=== PATIENT | female | born 2000 | race Two or more races ===

== ENCOUNTER 2022-06-17 03:36 | Inpatient (IN) | payer OTHER ==
[~2022-06-17] VITALS: Ht 160 cm; Wt 76.7 kg
[2022-06-17] VITALS (63 sets, daily range): BP systolic 84–164; BP diastolic 45–83
[2022-06-17] MEDS ORDERED: LACTATED RINGER'S 1000 ML IV STA (04:26)
[2022-06-17] MEDS ORDERED: METHYLERGONOVINE MALEATE 0.2 MG/ML VIAL (J2210) IM PRN (04:30)
[2022-06-17] MEDS ORDERED: LIDOCAINE 1% MDV 20ML VIAL INFIL PRN (04:30)
[2022-06-17] MEDS ORDERED: OXYTOCIN DRIP 30 UNITS in IV 1 EA IV PRN ×4 (04:30)
[2022-06-17] MEDS ORDERED: TRANEXAMIC ACID INJection 1,000 MG in NS 100 ML IV PRN (04:30)
[2022-06-17 04:45] LABS: HEMATOCRIT 38.3 % (36.0-47.0); HEMOGLOBIN 12.7 g/dl (12.0-15.5); MEAN CORPUSCULAR HEMOGLOBIN 30.3 pg (27.0-33.0); MEAN CORPUSCULAR HGB CONC 33.2 g/dl (32.0-36.5); MEAN CORPUSCULAR VOLUME 91.4 fl (80.0-96.0); PLATELET COUNT, AUTOMATED 297 10^3/uL (150-450); RED BLOOD COUNT 4.19 10^6/uL (4.00-5.40); WHITE BLOOD COUNT 15.6 10^3/uL (4.0-10.0)
[2022-06-17] MEDS: LR 1,000 ML IV SCH ×2 (05:03→20:30)
[2022-06-17] MEDS ORDERED: diphenhydrAMINE 50MG/ML VIAL (J1200) IV PRN (05:10)
[2022-06-17] MEDS ORDERED: NALOXONE INJ 0.4MG/1ML VIAL (J2310 PER 1MG) IV PRN (05:10)
[2022-06-17] MEDS ORDERED: LR 500 ML IV PRN (05:10)
[2022-06-17] MEDS ORDERED: ePHEDrine SULFATE 25 MG/5 ML(5MG/ML) SYRINGE IVP PRN (05:10)
[2022-06-17] MEDS ORDERED: ONDANSETRON 4MG 2ML VIAL IV PRN (05:10)
[2022-06-17] MEDS ORDERED: EPIDURAL/PCA KEYS XX PRN (05:10)
[2022-06-17] MEDS: FENTANYL/ROPIVACAINE/NACL BAG 100 ML EPIDURAL SCH ×2 (05:19→17:26)
[2022-06-17] MEDS ORDERED: OXYTOCIN DRIP 30 UNITS in IV 1 EA IV SCH (07:30)
[2022-06-17] MEDS: MIRALAX *UNIT DOSE* 17GM PACKET PO SCH (09:00)
[2022-06-17] MEDS ORDERED: ACETAMINOPHEN TAB 650MG DOSE (2X325MG) PO PRN (10:25)
[2022-06-17] MEDS ORDERED: METHYLERGONOVINE MALEATE 0.2 MG TAB PO PRN (10:25)
[2022-06-17] MEDS ORDERED: ACETAMINOPHEN 500 MG TAB PO PRN (10:25)
[2022-06-17] MEDS ORDERED: IBUPROFEN 800 MG TAB PO PRN (10:25)
[2022-06-17] MEDS ORDERED: DOCUSATE SODIUM 100MG CAPSULE PO PRN (10:25)
[2022-06-17] MEDS ORDERED: IBUPROFEN 600MG TAB PO PRN (10:25)
[2022-06-17 13:17] LABS: BASO % 0.1 % (0.0-1.0); HEMATOCRIT 30.6 % (36.0-47.0); LYMPH # 2.1 10^3/uL (1.5-5.0); LYMPH % 9.1 % (24.0-44.0); MEAN CORPUSCULAR HEMOGLOBIN 29.9 pg (27.0-33.0); MEAN CORPUSCULAR VOLUME 93.3 fl (80.0-96.0); MONO # 1.3 10^3/uL (0.0-0.8); MONO % 5.6 % (2.0-8.0); NEUTROPHILS # 19.4 10^3/uL (1.5-8.5); NEUTROPHILS % 84.3 % (36.0-66.0); PLATELET COUNT, AUTOMATED 244 10^3/uL (150-450); RED BLOOD COUNT 3.28 10^6/uL (4.00-5.40)
[2022-06-17 13:34] LABS: HEMOGLOBIN 9.8 g/dl (12.0-15.5)
[2022-06-17] MEDS ORDERED: ACETAMINOPH W/CODEINE #3 TAB UD PO PRN (13:50)
[2022-06-17 15:54] LABS: HEMATOCRIT 27.5 % (36.0-47.0); HEMOGLOBIN 9.3 g/dl (12.0-15.5); MEAN CORPUSCULAR HEMOGLOBIN 31.1 pg (27.0-33.0); MEAN CORPUSCULAR HGB CONC 33.8 g/dl (32.0-36.5); PLATELET COUNT, AUTOMATED 259 10^3/uL (150-450); RED BLOOD COUNT 2.99 10^6/uL (4.00-5.40); WHITE BLOOD COUNT 22.7 10^3/uL (4.0-10.0)
[2022-06-17] MEDS ORDERED: LACTATED RINGER'S 1000 ML IV ONE (16:00)
[2022-06-17] MEDS ORDERED: ACETAMINOPH W/CODEINE #3 TAB UD PO ONE (16:05)
[2022-06-17] MEDS ORDERED: oxyCODONE 5MG TAB PO PRN (16:25)
[2022-06-17] MEDS ORDERED: FENTANYL 2MCG/ML ROPIVACAINE 0.2% IN 0.9% NACL 100ML IVBAG As Ordered ONE (17:23)
[2022-06-17 18:12] LABS: INR 0.98; PARTIAL THROMBOPLASTIN TIME 25.7 SECONDS (24.8-34.2); PROTHROMBIN TIME 13.2 SECONDS (12.5-14.5)
[2022-06-17] MEDS ORDERED: ISOVUE-370 76% 100ML VIAL As Ordered ONE (18:23)
[2022-06-17] MEDS ORDERED: ACETAMINOPHEN 500 MG TAB PO SCH ×2 (19:00→23:00)
[2022-06-17 19:09] LABS: HEMOGLOBIN 7.9 g/dl (12.0-15.5); MEAN CORPUSCULAR HEMOGLOBIN 30.3 pg (27.0-33.0); MEAN CORPUSCULAR HGB CONC 32.9 g/dl (32.0-36.5); PLATELET COUNT, AUTOMATED 226 10^3/uL (150-450); RED BLOOD COUNT 2.61 10^6/uL (4.00-5.40); WHITE BLOOD COUNT 19.6 10^3/uL (4.0-10.0)
[2022-06-17] MEDS: IBUPROFEN 800 MG TAB PO SCH (19:30)
[2022-06-17] MEDS: ceFAZolin SOD 2 GM in IV 1 EA IV SCH (20:23)
[2022-06-17] MEDS ORDERED: ACETAMINOPHEN 500 MG TAB PO ONE (20:55)
[2022-06-17] MEDS ORDERED: diphenhydrAMINE 25MG CAP PO ONE (20:55)
[2022-06-18] VITALS (16 sets, daily range): BP systolic 112–138; BP diastolic 52–77
[2022-06-18 01:30] LABS: HEMATOCRIT 29.3 % (36.0-47.0); MEAN CORPUSCULAR HEMOGLOBIN 30.4 pg (27.0-33.0); MEAN CORPUSCULAR HGB CONC 33.8 g/dl (32.0-36.5); MEAN CORPUSCULAR VOLUME 89.9 fl (80.0-96.0); PLATELET COUNT, AUTOMATED 205 10^3/uL (150-450); RED BLOOD COUNT 3.26 10^6/uL (4.00-5.40); WHITE BLOOD COUNT 17.5 10^3/uL (4.0-10.0)
[2022-06-18 01:41] LABS: HEMOGLOBIN 9.9 g/dl (12.0-15.5)
[2022-06-18] MEDS ORDERED: diphenhydrAMINE 25MG CAP PO ONE (01:50)
[2022-06-18] MEDS: LR 1,000 ML IV SCH ×2 (02:03→10:41)
[2022-06-18] MEDS: IBUPROFEN 800 MG TAB PO SCH ×3 (03:10→18:21)
[2022-06-18] MEDS: ceFAZolin SOD 2 GM in IV 1 EA IV SCH ×3 (03:10→20:06)
[2022-06-18] MEDS: ACETAMINOPHEN 500 MG TAB PO SCH ×3 (04:54→22:08)
[2022-06-18] MEDS ORDERED: oxyCODONE 5MG TAB PO PRN (05:35)
[2022-06-18 06:58] LABS: HEMATOCRIT 28.8 % (36.0-47.0); HEMOGLOBIN 9.8 g/dl (12.0-15.5); MEAN CORPUSCULAR HEMOGLOBIN 30.8 pg (27.0-33.0); MEAN CORPUSCULAR VOLUME 90.6 fl (80.0-96.0); PLATELET COUNT, AUTOMATED 190 10^3/uL (150-450); RED BLOOD COUNT 3.18 10^6/uL (4.00-5.40)
[2022-06-18] MEDS: MIRALAX *UNIT DOSE* 17GM PACKET PO SCH (08:48)
[2022-06-18] MEDS: DIBUCAINE 1% OINTMENT 30GM TOP PRN ×2 (08:48→18:23)
[2022-06-18] MEDS: PRENATAL VITAMINS CHEWABLE TABLET PO SCH (08:48)
[2022-06-18] MEDS: oxyCODONE 5MG TAB PO PRN (12:54)
[2022-06-18 14:05] LABS: BASO % 0.1 % (0.0-1.0); EOS # 0.1 10^3/uL (0.0-0.5); EOS % 0.7 % (0.0-3.0); HEMATOCRIT 30.9 % (36.0-47.0); HEMOGLOBIN 10.1 g/dl (12.0-15.5); LYMPH # 2.5 10^3/uL (1.5-5.0); LYMPH % 15.5 % (24.0-44.0); MEAN CORPUSCULAR HGB CONC 32.7 g/dl (32.0-36.5); MEAN CORPUSCULAR VOLUME 91.7 fl (80.0-96.0); MONO # 0.7 10^3/uL (0.0-0.8); MONO % 4.6 % (2.0-8.0); NEUTROPHILS # 12.7 10^3/uL (1.5-8.5); NEUTROPHILS % 78.3 % (36.0-66.0); PLATELET COUNT, AUTOMATED 229 10^3/uL (150-450); RED BLOOD COUNT 3.37 10^6/uL (4.00-5.40); WHITE BLOOD COUNT 16.2 10^3/uL (4.0-10.0)
[2022-06-18 18:54] LABS: BASO % 0.2 % (0.0-1.0); EOS # 0.3 10^3/uL (0.0-0.5); EOS % 1.8 % (0.0-3.0); HEMATOCRIT 28.7 % (36.0-47.0); HEMOGLOBIN 9.8 g/dl (12.0-15.5); LYMPH # 2.9 10^3/uL (1.5-5.0); MEAN CORPUSCULAR HEMOGLOBIN 31.3 pg (27.0-33.0); MEAN CORPUSCULAR HGB CONC 34.1 g/dl (32.0-36.5); MEAN CORPUSCULAR VOLUME 91.7 fl (80.0-96.0); MONO # 0.8 10^3/uL (0.0-0.8); MONO % 5.1 % (2.0-8.0); NEUTROPHILS # 11.7 10^3/uL (1.5-8.5); NEUTROPHILS % 73.8 % (36.0-66.0); PLATELET COUNT, AUTOMATED 239 10^3/uL (150-450); RED BLOOD COUNT 3.13 10^6/uL (4.00-5.40); WHITE BLOOD COUNT 15.8 10^3/uL (4.0-10.0)
[2022-06-19 02:00] VITALS: BP 129/73
[2022-06-19] MEDS: IBUPROFEN 800 MG TAB PO SCH ×3 (02:56→18:40)
[2022-06-19] MEDS: oxyCODONE 5MG TAB PO PRN (03:10)
[2022-06-19 06:00] VITALS: BP 130/60
[2022-06-19] MEDS: ACETAMINOPHEN 500 MG TAB PO SCH ×3 (06:10→20:22)
[2022-06-19 07:55] LABS: BASO % 0.2 % (0.0-1.0); EOS # 0.4 10^3/uL (0.0-0.5); EOS % 2.5 % (0.0-3.0); HEMATOCRIT 29.3 % (36.0-47.0); HEMOGLOBIN 9.5 g/dl (12.0-15.5); LYMPH # 2.5 10^3/uL (1.5-5.0); LYMPH % 17.3 % (24.0-44.0); MEAN CORPUSCULAR HGB CONC 32.4 g/dl (32.0-36.5); MEAN CORPUSCULAR VOLUME 92.4 fl (80.0-96.0); MONO # 0.7 10^3/uL (0.0-0.8); MONO % 4.5 % (2.0-8.0); NEUTROPHILS # 10.6 10^3/uL (1.5-8.5); NEUTROPHILS % 74.2 % (36.0-66.0); PLATELET COUNT, AUTOMATED 244 10^3/uL (150-450); RED BLOOD COUNT 3.17 10^6/uL (4.00-5.40); WHITE BLOOD COUNT 14.3 10^3/uL (4.0-10.0)
[2022-06-19] MEDS ORDERED: MEASLES,MUMPS,RUBELLA VACCINE INJ (MMR-II) (90707) SC.IMMUN ONE (09:00)
[2022-06-19] MEDS: PRENATAL VITAMINS CHEWABLE TABLET PO SCH (09:56)
[2022-06-19] MEDS: MIRALAX *UNIT DOSE* 17GM PACKET PO SCH (09:56)
[2022-06-19 10:00] VITALS: BP 118/79
[2022-06-19 14:00] VITALS: BP 118/68
[2022-06-19 17:45] VITALS: BP 136/71
[2022-06-19 22:20] VITALS: BP 132/70
[2022-06-20] MEDS: oxyCODONE 5MG TAB PO PRN (00:28)
[2022-06-20 02:00] VITALS: BP 124/69
[2022-06-20] MEDS: IBUPROFEN 800 MG TAB PO SCH ×2 (04:01→10:54)
[2022-06-20] MEDS: ACETAMINOPHEN 500 MG TAB PO SCH ×2 (05:25→13:08)
[2022-06-20 06:20] VITALS: BP 121/73
[2022-06-20] MEDS: PRENATAL VITAMINS CHEWABLE TABLET PO SCH (09:27)
[2022-06-20] MEDS: MIRALAX *UNIT DOSE* 17GM PACKET PO SCH (09:27)
[2022-06-20] MEDS ORDERED: COLA100C5 PO (09:48)
[2022-06-20] MEDS ORDERED: IBUP80TA PO (09:48)
[2022-06-20] MEDS ORDERED: MIRA1POW3 PO (09:48)
[2022-06-20] MEDS ORDERED: PRENCHW PO (09:48)
[2022-06-20 10:05] VITALS: BP 119/76
== END 2022-06-20 13:12 | disposition home or self-care (01) | DRG 768 ==
LOC: M LDO 03:36 → M LDI 04:04 → M OBS 06-18 10:30
PROVIDERS: ADMIT Obstetrics & Gynecology; ATTEND Advanced Practice Midwife
PROC: 0W3R7ZZ Control Bleeding in Genitourinary Tract, Via Natural or Artificial Opening (ICD-10-PCS; principal; 2022-06-17)
PROC: 10E0XZZ Delivery of Products of Conception, External Approach (ICD-10-PCS; 2022-06-17)
PROC: 0KQM0ZZ Repair Perineum Muscle, Open Approach (ICD-10-PCS; 2022-06-17)
PROC: 30233N1 Transfusion of Nonautologous Red Blood Cells into Peripheral Vein, Percutaneous Approach (ICD-10-PCS; 2022-06-17)
DX: O48.0 Post-term pregnancy (principal); Z37.0 Single live birth; O71.7 Obstetric hematoma of pelvis; Z3A.40 40 weeks gestation of pregnancy; O26.03 Excessive weight gain in pregnancy, third trimester; Z88.2 Allergy status to sulfonamides; O70.1 Second degree perineal laceration during delivery

== ENCOUNTER → 2022-07-15 | Outpatient (CLI) | payer OTHER ==
[~2022-07-15] MED LIST: COLA100C5 PO; IBUP80TA PO; ISOVUE-370 76% 100ML VIAL As Ordered ONE; MIRA1POW3 PO; PRENCHW PO
== END ==
LOC: M RAD 14:45
PROVIDERS: ATTEND Advanced Practice Midwife
DX: O71.7 Obstetric hematoma of pelvis (principal)